=== PATIENT | male | born 1965 | race African-American/Black ===

== ENCOUNTER 2017-11-24 06:46 | Emergency (ER) | payer OTHER ==
[~2017-11-24] VITALS: Ht 172.7 cm; Wt 95.3 kg
[2017-11-24] MEDS ORDERED: NAPROSYN500 MG PO (07:18)
== END 2017-11-24 07:38 | disposition home or self-care (01) ==
LOC: ER 06:46
DX: R20.2 Paresthesia of skin (principal)